=== PATIENT | female | born 1990 | race Caucasian/White ===

== ENCOUNTER 2021-09-19 22:44 | Inpatient (IN) | payer OTHER ==
[~2021-09-19] VITALS: Ht 162.6 cm; Wt 75.3 kg
--- NOTE | 2021-09-19 23:31 | NUR ---
PACIENTE ALERTA Y ORIENTADA EMBARAZADA REFIERE QUE DESDE HACE 2 LI ESTA CON SANGRADO VAGINAL Y HOY COMENZO CON SUKHDEV PELVICOS. REFIERE QUE HOY PRESENTA SANGRADO MAS PROFUNDO Y QUE PRESENTO UN CUAGULO HOY. SE MONITOREAN S/V Y SE UBICA EN OBSERVACION.
--- NOTE | 2021-09-20 00:59 | NUR ---
PTE EVALUADA POR EL DR WILKES QUIEN ORDENA EL [place]. SE ORIENTA SOBRE EL [place] ORDENADO, LO CUAL REFIERE ENTENDER. SE REALIZAN PRUEBAS DE LABORATORIO Y SE ADMINISTRAN MEDICAMENTOS JOVANNA ORDEN MEDICA Y SIGUIENDO MEDIDAS ASEPTICAS. SONOGRAMA NOTIFICADO A PERSONAL DE TURNO.
== END 2021-09-22 10:00 | disposition home or self-care (01) | DRG 819 ==
LOC: ER 22:44 → OB/GYN 09-20 03:21
PROVIDERS: ADMIT Obstetrics & Gynecology; ATTEND Obstetrics & Gynecology
PROC: 10T20ZZ Resection of Products of Conception, Ectopic, Open Approach (ICD-10-PCS; principal; 2021-09-20 12:30)
DX: O00.101 Right tubal pregnancy without intrauterine pregnancy (principal); Z20.822 Contact with and (suspected) exposure to COVID-19